=== PATIENT | male | born 1965 | race Caucasian/White ===

== ENCOUNTER 2020-09-07 00:11 | Emergency (ER) | payer BC ==
[~2020-09-07] VITALS: Ht 167.6 cm; Wt 65.9 kg
[2020-09-07] MEDS ORDERED: AMLODIPINE BESYL5 MG PO (00:30)
[2020-09-07] MEDS ORDERED: LIPITOR20 MG PO (00:31)
[2020-09-07] MEDS ORDERED: PHOSLO667 MG PO (00:31)
[2020-09-07] MEDS ORDERED: COREG6.25 MG PO (00:32)
[2020-09-07] MEDS ORDERED: VITAMIN D32000 UNI2 PO (00:32)
[2020-09-07] MEDS ORDERED: COZAAR50 MG PO (00:33)
[2020-09-07] MEDS ORDERED: LASIX40 MG PO (00:33)
[2020-09-07 01:16] LABS: HEMATOCRIT 37.8 % (39.0-50.0); HEMOGLOBIN 12.6 g/dl (14.0-18.0); IMMATURE GRANULOCYTES 0.3 % (0.0-5.0); MEAN CORPUSCULAR HGB 30.7 pG CALC (26.0-32.0); MEAN CORPUSCULAR HGB CONC 33.3 g/dL CAL (32.0-36.0); NEUT# 10.64 thou/uL (1.82-7.42); RED BLOOD COUNT 4.11 mill/uL (4.70-6.10)
[2020-09-07 01:36] LABS: ALBUMIN 4.9 g/dL (3.2-5.0); BILIRUBIN, TOTAL 0.6 mg/dL (0.0-1.4); TOTAL PROTEIN 8.1 g/dL (6.3-8.2)
[2020-09-07 02:01] LABS: POTASSIUM 5.5 mmol/l (3.5-5.1)
[2020-09-07 02:20] LABS: CREATININE 11.4 mg/dL (0.7-1.3)
[2020-09-07 04:08] VITALS: BP 153/81
== END 2020-09-07 04:26 | DRG 193 ==
LOC: ED 00:11
PROVIDERS: Family Medicine
DX: J18.9 Pneumonia, unspecified organism (principal); N18.6 End stage renal disease; I12.0 Hypertensive chronic kidney disease with stage 5 chronic kidney disease or end stage renal disease; J81.1 Chronic pulmonary edema; F17.210 Nicotine dependence, cigarettes, uncomplicated; Z99.2 Dependence on renal dialysis; Z20.828 Contact with and (suspected) exposure to other viral communicable diseases; Z86.19 Personal history of other infectious and parasitic diseases

== ENCOUNTER 2020-09-23 15:59 | Emergency (ER) | payer BC ==
[~2020-09-23] VITALS: Ht 167.6 cm; Wt 70.0 kg
[~2020-09-23 15:59] MED LIST: AMLODIPINE BESYL5 MG PO; COREG6.25 MG PO; COZAAR50 MG PO; LASIX40 MG PO; LIPITOR20 MG PO; PHOSLO667 MG PO; VITAMIN D32000 UNI2 PO
[2020-09-23 17:41] LABS: IMMATURE GRANULOCYTES 0.3 % (0.0-5.0); MEAN CELL VOLUME 90.2 fL CALC (80.0-100.0); MEAN CORPUSCULAR HGB 30.4 pG CALC (26.0-32.0); MEAN CORPUSCULAR HGB CONC 33.7 g/dL CAL (32.0-36.0); NEUT# 4.11 thou/uL (1.82-7.42); RED BLOOD COUNT 2.86 mill/uL (4.70-6.10); RED CELL DISTRI WIDTH 15.3 % (11.5-15.5)
[2020-09-23 17:43] LABS: HEMATOCRIT 25.8 % (39.0-50.0); HEMOGLOBIN 8.7 g/dl (14.0-18.0)
[2020-09-23 18:01] LABS: BILIRUBIN, TOTAL 0.5 mg/dL (0.0-1.4)
[2020-09-23 18:04] LABS: ALBUMIN 3.9 g/dL (3.2-5.0); POTASSIUM 3.9 mmol/l (3.5-5.1)
[2020-09-23 23:25] VITALS: BP 184/85
== END 2020-09-23 23:25 | DRG 193 ==
LOC: ED 15:59
DX: J18.9 Pneumonia, unspecified organism (principal); N18.6 End stage renal disease; I12.0 Hypertensive chronic kidney disease with stage 5 chronic kidney disease or end stage renal disease; F17.200 Nicotine dependence, unspecified, uncomplicated; Z99.2 Dependence on renal dialysis; Z20.828 Contact with and (suspected) exposure to other viral communicable diseases

== ENCOUNTER 2022-07-03 09:47 | Inpatient (IN) | payer MEDICARE ==
[~2022-07-03] VITALS: Ht 170.2 cm; Wt 62.1 kg
--- NOTE | 2022-07-03 09:47 | NUR ---
PATIENT TO ED VIA EMS FOR SOB
[2022-07-03] MEDS ORDERED: CALCIUM ACETAT667 M1 PO (10:23)
[2022-07-03] MEDS ORDERED: CARVEDILOL25 MG PO (10:23)
[2022-07-03] MEDS ORDERED: HYDRALAZINE50 MG PO (10:24)
[2022-07-03] MEDS ORDERED: LOSARTAN POTASS50 MG PO (10:25)
[2022-07-03] MEDS ORDERED: TEMAZEPAM30 MG PO (10:26)
[2022-07-03 10:30] LABS: HEMATOCRIT 28.2 % (39.0-50.0); IMMATURE GRANULOCYTES 0.1 % (0.0-5.0); MEAN CELL VOLUME 95.3 fL CALC (80.0-100.0); MEAN CORPUSCULAR HGB 30.4 pG CALC (26.0-32.0); MEAN CORPUSCULAR HGB CONC 31.9 g/dL CAL (32.0-36.0); NEUT# 4.67 thou/uL (1.82-7.42); RED BLOOD COUNT 2.96 mill/uL (4.70-6.10); RED CELL DISTRI WIDTH 15.6 % (11.5-15.5)
--- NOTE | 2022-07-03 10:46 | NUR ---
PT IN ROOM ON MONITOR, MEDICATED FOR ANXIETY, AWAITING TEST RESULTS.
[2022-07-03 10:49] LABS: ALBUMIN 4.5 g/dL (3.2-5.0); ALKALINE PHOSPHATASE 65 u/l (38-126); BUN 41 mg/dL (9-20); CHLORIDE 98 mmol/l (95-108); POTASSIUM 4.6 mmol/l (3.5-5.1); SGOT/AST 23 u/l (17-59); SODIUM 136 mmol/l (137-146); TOTAL PROTEIN 7.2 g/dL (6.3-8.2)
[2022-07-03 10:55] LABS: ANION GAP 18 (6-22 (CALC)); BILIRUBIN, TOTAL 0.8 mg/dL (0.0-1.4); BUN/CREATININE RATIO 4 (12-20 (CALC)); CARBON DIOXIDE 25 mmol/l (22-30); CREATININE 10.1 mg/dL (0.7-1.3); GFR FOR AFR.AMER. 6 ML/MIN (>=60 (CALC)); GFR OTHER RACES 5 ML/MIN (>=60 (CALC))
--- NOTE | 2022-07-03 13:31 | NUR ---
PT TO HAVE DIALYSIS, PLACED ON BI-PAP UNTIL THAT TIME.
--- NOTE | 2022-07-03 14:21 | NUR ---
PT RECEIVING DIALYSIS.
--- NOTE | 2022-07-03 17:10 | NUR ---
PT DIALYSIS COMPLETE, TRIALED OFF BI-PAP, TRIAL UNSUCCESFUL, PT TO REMAIN ON BIPAP
--- NOTE | 2022-07-03 18:41 | NUR ---
PT IN ROOM ON MONITOR, ON BIPAP, SLEEPING.
--- NOTE | 2022-07-03 19:53 | NUR ---
PT IN ROOM IN BED ON MONITOR SLEEPING, WILL CONT TO MONITOR.
--- NOTE | 2022-07-03 21:46 | NUR ---
PT PLACED IN HOSPITAL BED.
--- NOTE | 2022-07-03 22:00 | NUR ---
REPORT GIVEN TO CHIQUIS MCCONNELL
--- NOTE | 2022-07-03 23:10 | NUR ---
RESTING IN BED. ON 5 Lnc. NO S/S OF DISTRESS NOTED.
[2022-07-03 23:11] VITALS: BP 133/74
[2022-07-04] VITALS (8 sets, daily range): BP systolic 140–172; BP diastolic 69–86
--- NOTE | 2022-07-04 01:50 | NUR ---
PT TRANSFERED FROM ED TO ROOM 10 IN [facility] FOR TEMPORARY UNTIL ROOM ASSIGNMENT GIVEN ON MS FLOOR. A&O X4. NO APPARENT RESPIRATORY DISTRESS NOTED. PT DENIES ANY SOB, SAT 91% ON RA. APPLIED 2L/M VIA NC. PT ORIENTED TO ROOM AND CALL LIGHT SYSTEM. CALL LIGHT WITHIN REACH. WILL CONTINUE TO MONITOR.
[2022-07-04 06:28] LABS: HEMATOCRIT 25.4 % (39.0-50.0); HEMOGLOBIN 8.1 g/dl (14.0-18.0); MEAN CELL VOLUME 96.9 fL CALC (80.0-100.0); MEAN CORPUSCULAR HGB 30.9 pG CALC (26.0-32.0); MEAN CORPUSCULAR HGB CONC 31.9 g/dL CAL (32.0-36.0); RED BLOOD COUNT 2.62 mill/uL (4.70-6.10); RED CELL DISTRI WIDTH 15.3 % (11.5-15.5)
[2022-07-04 06:49] LABS: ALBUMIN 3.6 g/dL (3.2-5.0); POTASSIUM 4.4 mmol/l (3.5-5.1)
[2022-07-04 06:52] LABS: CREATININE 8.8 mg/dL (0.7-1.3)
--- NOTE | 2022-07-04 07:50 | NUR ---
PT SITTING IN HIGH FOWLERS POSITION. PT A/OX3. RESPIRATIONS EVEN AND UNLABORED ON 2L NC. LUNG SOUNDS CLEAR. HEART RHYTHM NORMAL. BOWEL SOUNDS ACTIVE. #20G LAC PATENT. SKIN INTACT. FISTUAL NOTED TO GAY. POST CATERACT SURGERY. PT DENIES OF ANY NEEDS. ALL SAFTEY PRECAUTIONS ARE IN PLACE WITH CALL LIGHT IN REACH.
--- NOTE | 2022-07-04 09:15 | NUR ---
NEW #22G LFA STARTED, SITE PATENT.
--- NOTE | 2022-07-04 12:10 | NUR ---
PT RESTING IN SEMI FOWLERS POSITION EATING LUNCH. RESPIRATIONS EVEN AND UNLABORED ON 2L NC. O2 EXTENSION PROVIDED. #22G LFA REMAINS IN PLAC. TELE MONITORING NOTED. PT DENIES OF ANY NEEDS. ALL SAFTEY PRECAUTIONS ARE IN PLACE WITH CALL LIGHT IN REACH
--- NOTE | 2022-07-04 16:17 | NUR ---
PT SITTING ON SOFA. RESPIRATIONS EVEN AND UNLABORED ON 2L NC. #20G LAC PATENT. TELE MONITORING IN PLACE. PT DENIES OF ANY ADDITIONAL NEEDS. ALL SAFTEY PRECAUTIONS ARE IN PLACE WITH CALL LIGHT IN REACH
--- NOTE | 2022-07-04 19:00 | NUR ---
PATIENT UP IN ROOM WITH O2 VIA NASAL CANNULA IN PLACE. AWAKE ALERT AND ORIENTEDX3 WITH STEADY GAIT. TELE MONITOR IN PLACE AND READING SR-80'S. NO C/O CHEST PAIN AT THIS TIME. STATES THAT HE IS SLIGHTLY SOB SHAWN WHEN HE LYES DOWN. ENCOURAGED PATIENT TO STAY UPRIGHT AND SLEEP WITH HOB ELEVATED SOME. O2 SAT IS 99% WITH O2 IN PLACE AT 2LPM. PATIENT IS H/D PATIENT WITH AV FISTULA TO RIGHT UPPER ARM WITH POSITIVE BRUITT AND THRILL. WAS LAST DIALAYSED EARLY THIS MORNING. IV SITE TO RAC INTACT AND HEALTHY AT THIS TIME WITH GOOD BLOOD RETURN. LUNGS ARE CLEAR. ABD IS SOFT WITH ACTIVE BS. LAST BM WAS YESTERDAY07/03. VOIDS VERY LITTLE IF ANY DUE TO ESRD. NO PERIPHERAL EDEMA NOTED. PULSES ARE PALPABLE. SAFETY PRECAUTIONS REINFORCED. CALL LIGHT IN REACH. WILL CONT TO MONITOR.
--- NOTE | 2022-07-04 22:01 | NUR ---
PATIENT UP IN ROOM-STEADY ON HIS FEET WEARING O2 VIA NASAL CANNULA. PATIENT HAD HS SNACK. MEDICATED WITH RESTORIL 30MG PO FOR SLEEP. SAFETY PRECAUTIONS REINFORCED. CALL LIGHT IN REACH. WILL CONT TO MONITOR.
[2022-07-05] VITALS (7 sets, daily range): BP systolic 143–165; BP diastolic 74–87
--- NOTE | 2022-07-05 01:00 | NUR ---
PATIENT AWAKE AND ALERT-REQUESTING COUGH MEDICATION. MEDICATED WITH ROBITUSSIN ORDERED. STATES THAT HE CAN'T SLEEP EVEN AFTER TAKING SLEEP MED. O2 VIA NASAL CANNULA IN PLACE AT 2LPM. TELE MONITOR IN PLACE WITH LAST READING SR-97. SALINE LOCK TO LEFT FOREARM INTACT. SAFETY PRECAUTIONS REINFORCED. CALLL LIGHT IN REACH. WILL CONT TO MONITOR.
[2022-07-05 04:31] LABS: ALBUMIN 3.9 g/dL (3.2-5.0); POTASSIUM 4.6 mmol/l (3.5-5.1)
[2022-07-05 04:45] LABS: CREATININE 11.5 mg/dL (0.7-1.3)
--- NOTE | 2022-07-05 08:05 | NUR ---
PT SITTING ON SIDE OF BED: A&O X3. EVEN AND UNLABORED RESPIRATIONS, CLEAR LUNG SOUNDS UPON AUSCULTATION. TELEMETRY IN PLACE WITH LAST READING SR-89. IV SITE FLUSHED: # 22 LF FA, HEALTHY AND PATETN. AV FISTULA ON RT UPPER ARM NOTED: WITH POSITIVE BRUITT AND THRILL. ACTIVE BOWEL SOUNDS X4 QUADRANTS. SAFETY PRECAUTIONS IN PLACE WITH CALL LIGHT IN REACH.
--- NOTE | 2022-07-05 11:50 | NUR ---
RECIEVE REPORT FROM ROSS GARCIA. PT RESTING IN BED STABLE AT THIS TIME. SAFETY AND FALL PRECAUTIONS IN PLACE. CALL LIGHT WITHIN REACH.
--- NOTE | 2022-07-05 16:03 | NUR ---
PATIENT RESTING IN BED. STABLE AT THIS TIME.
--- NOTE | 2022-07-05 19:56 | NUR ---
PATIENT UP AND ABOUT IN ROOM AND PRYOR-STEADY ON HIS FEET. AWAKE ALERT AND ORIENTEDX3. PATIENT WITH NO COMPLAINTS AT THIS TIME. PATIENT AWAITING H/D EITHER TONIGHT OR TOMORROW. IV SITE LEFT ARM INTACT AND HEALTHY AT THIS TIME. AV FISTULA TO RIGHT UPPER ARM INTACT WITH POSITIVE BRUITT AND THRILL. TELE MONITOR IN PLACE AND LAST READING WAS SR-80'S. LUNGS CLEAR AT THIS TIME. ABD IS SOFT WITH ACTIVE BS. DOESN'T VOID MUCH URINE DUE TO ESRD. NO PERIPHERAL EDEMA NOTED AT THIS TIME. SAFETY PRECAUTIONS REINFORCED. CALL LIGHT IN REACH. WILL CONT TO MONITOR.
[2022-07-06 00:01] VITALS: BP 161/78
--- NOTE | 2022-07-06 00:34 | NUR ---
RESTING IN BED ON ROOM AIR-O2 SAT IS 94% AT THIS TIME. MEDICATED WITH TEMAZEPAM 30MG PO FOR SLEEP. TELE MONITOR IN PLACE. SALINE LOCK TO LEFT ARM INTACT. PROVIDED WITH HS SNACK. SAFETY PRECAUTIONS REINFORCED. CALL LIGHT IN REACH. WILL CONT TO MONITOR.
[2022-07-06 04:22] VITALS: BP 150/78
[2022-07-06 04:30] VITALS: BP 150/78
--- NOTE | 2022-07-06 04:30 | NUR ---
PATIENT RESTING IN BED AT THIS TIME WITH EYES CLOSED AND RESPS EVEN AND UNLABORED. O2 REAPPLIED AFTER O2 SAT WAS READING HIGH 80'S ON ROOM AIR. RESPONDED AND NOW READIN MID 90'S. TELE MONITOR IN PLACE-LAST READING 89. SALINE LOCK INTACT TO LEFT FOREARM. PATIENT FOR H/D TODAY. SAFETY PRECAUTIONS REINFORCED. CALL LIGHT IN REACH. WILL CONT TO MONITOR.
[2022-07-06 06:19] VITALS: BP 155/78
--- NOTE | 2022-07-06 07:31 | NUR ---
Receive report from Rachna MCCONNELL. Patient alert and oriented x3. Resting in bed sleeping at this time. Unlabored respitations rate is good. O2 2L SAT 95%. Tele monitor in place HR89 SR. Safety and fall precautions in place. Call light within reach. Will Continue monitor.
[2022-07-06 11:23] VITALS: BP 142/74
--- NOTE | 2022-07-06 11:40 | NUR ---
RESTING IN BED ON O2 2L SAT IS 97% AT THIS TIME. TELE MONITOR IS DC. SAFETY PRECAUTIONS AND FALL PRECAUTIONS IN PLACE. CALL LIGHT WITHIN REACH.
--- NOTE | 2022-07-06 13:07 | NUR ---
O2 SAT ON 93% ON 2L
[2022-07-06] MEDS ORDERED: AMLODIPINE BESYL5 MG PO (15:03)
[2022-07-06] MEDS ORDERED: LIPITOR20 MG PO (15:03)
[2022-07-06] MEDS ORDERED: MEDDOSEPAK PO (15:04)
[2022-07-06] MEDS ORDERED: ZITHROMAX250 MG PO (15:04)
--- NOTE | 2022-07-06 15:45 | NUR ---
pt received to dialysis room; appears stable; no apparent distress noted; pt very talkative; consent obtained; will continue to monitor
--- NOTE | 2022-07-06 15:50 | NUR ---
PATIENT IS IN DIALYSIS. WALK TEST IS DONE.
--- NOTE | 2022-07-06 16:07 | NUR ---
dialysis treatment started; will continue to monitor
--- NOTE | 2022-07-06 17:30 | NUR ---
awake in recliner; appeats anxious; denies discomfort; dialysis access without edema; pt deny needs; will continue to monitor
--- NOTE | 2022-07-06 17:41 | NUR ---
Prescription medications plus amlodipine and atorvastatin that had been lost on admission to the ER were collected from the pharmacy on the first floor of the hospital. Patient did not have to pay for medications.
--- NOTE | 2022-07-06 18:34 | NUR ---
awake; offers no complaints; no apparent distress noted; will continue to monitor
[2022-07-06 20:04] VITALS: BP 184/84
--- NOTE | 2022-07-06 21:00 | NUR ---
PATIENT RETURNED TO THE FLOOR FROM H/D VIA W/C WITH H/D STAFF IN ATTENDANCE. PATIENT IS INDEPENDANT AND AMBULATORY IN ROOM. ALERT AND ORIENTEDX3. DINNER TRAY WAS PROVIDED. APPETITE GOOD. HS MEDS WERE PROVIDED. DRESSING TO RIGHT UPPER ARM INTACT TO AV FISTULA SITE. POSITIVE BRUITT AND THRILL POSITIVE. SALINE LOCK TO LEFT FOREARM INTACT. LUNGS ARE CLEAR. ABD IS SOFT WITH POSITIVE BS. STATES THAT HE DID HAVE BM TODAY. NO PERIPHERAL EDEMA NOTED. PULSES ARE PALPABLE. PATIENT PROVIDED WITH PERSCRIPTIONS THAT WERE DELIVERED FOR DISCHARGE. MED LIST WAS RETURNED TO THE PATIENT. UNABLE TO DISCHARGE TONIGHT DUE TO THE CURFEW IN PLACE DUE TO THE HURRICANE. SAFETY PRECAUTIONS REINFORCED. CALL LIGHT IN REACH. WILL CONT TO MONITOR.
--- NOTE | 2022-07-06 22:00 | NUR ---
RESTING IN BED-MEDICATED FOR SLEEP WITH RESTORIL 30MG PO PER PATIENT REQUEST. PROVIDED WITH HS SNACK. CALL LIGHT IN REACH. WILL CONT TO MONITOR.
--- NOTE | 2022-07-06 23:15 | NUR ---
PATIENT ASSISTED TO BED AND DEVELOPED CHEST PRESSURE AND SOB. VS TAKEN AND RECORDED. O2 SAT IS 90-91% WITH O2 AT 4LPM IN PLACE. RESP RATE INCREASED. TELE MONITOR IN PLACE-ER STATES THAT HE IS READING SR. RT CALLED AND DOING EKG AT THIS TIME. WILL CONT TO MONITOR.
--- NOTE | 2022-07-07 | NUR ---
PATIENT RESTING IN BED AT THIS TIME-EYES ARE CLOSED. RESPS ARE EVEN AND UNLABORED. CALL LIGHT IN REACH. WILL CONT TO MONITOR.
[2022-07-07 01:52] VITALS: BP 150/72
[2022-07-07 04:01] VITALS: BP 161/81
--- NOTE | 2022-07-07 04:59 | NUR ---
RESTING IN BED-EYES CLOSED. RESPS ARE EVEN AND UNLABORED. CALL LIGHT IN REACH. WILL CONT TO MONITOR.
[2022-07-07 06:13] VITALS: BP 162/79
--- NOTE | 2022-07-07 08:05 | NUR ---
SHIFT CHANGE KRISTEN REINOSO AWAKE ALERT AND ORIENTED SITTING UP IN BED, NO C/O DISCOMFORT AT THIS TIME, STATES HE IS WAITING FOR MEAL AND D/C REPORT TO GO HOME, HE IS VISION IMPAIRED, ORIENTED TO CALL WALLS, BED IN LOWEST POSITION AND CALL WALLS IN REACH
[2022-07-07 10:01] VITALS: BP 174/83
[2022-07-07 11:11] VITALS: BP 159/74
--- NOTE | 2022-07-07 11:45 | NUR ---
Discharge instructions given. Patient verbalizes understanding of same. Discharged in good condition via Ambulatory to *Other with *Other. All belongings sent with pt.
== END 2022-07-07 11:40 | disposition home or self-care (01) | DRG 291 ==
LOC: ED 09:47 → ED-I 11:07 → ED 11:19 → ED-I 11:20 → MS2 11:41
PROVIDERS: Family Medicine; ADMIT Internal Medicine; ATTEND Internal Medicine
PROC: 5A09357 Assistance with Respiratory Ventilation, Less than 24 Consecutive Hours, Continuous Positive Airway Pressure (ICD-10-PCS; principal; 2022-07-03)
PROC: 5A1D70Z Performance of Urinary Filtration, Intermittent, Less than 6 Hours Per Day (ICD-10-PCS; 2022-07-03)
PROC: 5A1D70Z Performance of Urinary Filtration, Intermittent, Less than 6 Hours Per Day (ICD-10-PCS; 2022-07-06)
DX: I13.2 Hypertensive heart and chronic kidney disease with heart failure and with stage 5 chronic kidney disease, or end stage renal disease (principal); N18.6 End stage renal disease; N25.81 Secondary hyperparathyroidism of renal origin; I50.9 Heart failure, unspecified; Z99.2 Dependence on renal dialysis; R09.02 Hypoxemia; J40 Bronchitis, not specified as acute or chronic; J44.9 Chronic obstructive pulmonary disease, unspecified; F17.200 Nicotine dependence, unspecified, uncomplicated; E78.5 Hyperlipidemia, unspecified; Z98.49 Cataract extraction status, unspecified eye; Z96.1 Presence of intraocular lens
CPT/HCPCS: J1644

== ENCOUNTER 2023-06-17 16:00 | Emergency (ER) | payer MEDICARE ==
[~2023-06-17] VITALS: Ht 170.2 cm; Wt 64.0 kg
[~2023-06-17 16:00] MED LIST changes: +CALCIUM ACETAT667 M1 PO; +CARVEDILOL25 MG PO; +HYDRALAZINE50 MG PO; +LOSARTAN POTASS50 MG PO; +MEDDOSEPAK PO; +TEMAZEPAM30 MG PO; +ZITHROMAX250 MG PO
[2023-06-17 17:00] VITALS: BP 174/77
== END 2023-06-17 17:18 | disposition home or self-care (01) ==
LOC: ED 16:00
DX: T82.838A Hemorrhage due to vascular prosthetic devices, implants and grafts, initial encounter (principal); I12.0 Hypertensive chronic kidney disease with stage 5 chronic kidney disease or end stage renal disease; N18.6 End stage renal disease; Z99.2 Dependence on renal dialysis; Y83.2 Surgical operation with anastomosis, bypass or graft as the cause of abnormal reaction of the patient, or of later complication, without mention of misadventure at the time of the procedure

== ENCOUNTER 2024-09-21 21:11 | Emergency (ER) | payer MEDICARE | END 2024-09-21 21:47 | disposition left against medical advice (07) | LOC: ED 21:11 → LWOBS 21:47 | DX: Z53.21 Procedure and treatment not carried out due to patient leaving prior to being seen by health care provider (principal) ==